=== PATIENT | male | born 1960 | race Caucasian/White ===

== ENCOUNTER 2017-10-08 10:09 | Inpatient (IN) ==
[2017-10-08 10:24] VITALS: RESP 18
[2017-10-08] MEDS ORDERED: Heparin 10,000 UNITS/10 ML Vial (for IV use) IV.PUSH STA (10:32)
--- NOTE | 2017-10-08 10:38 | ED ---
[facility] General Chief Complaint: STEMI Alert Stated Complaint: Chest pain Time Seen by Provider: 10/08/17 10:30 Source: patient Mode of arrival: ambulatory Limitations: no limitations History of Present Illness HPI narrative: Is a 56-year-old man with a history of hypertension diabetes hypothyroidism presents emerged department complaining of chest tightness, diaphoresis, sweating, also this morning when he woke up. He denies any explicit pain. Is unable to sinus problems over the past couple days but nothing more significant. No history of heart disease. Otherwise had been feeling generally well and healthy. Symptoms been mild to moderate, improving since onset. Patient denies explicit pain. Complete Quality Measures for STEMI Alert Patients Related Data Allergies Allergy/AdvReac Type Severity Reaction Status Date / Time No Known Allergies Allergy Unverified 10/08/17 10:17 Review of Systems ROS Unobtainable All other systems reviewed negative except as stated in HPI [facility] Medical History Medical History Diabetes (Acute) Hypertension (Acute) Hyperthyroidism (Acute) Social History Social History Substance History: No History of Abuse Smoking Status: Former smoker How Often Do You Have a Drink Containing Alcohol: 2 to 4 times a month Recent Travel in [facility] within the Last 8 Weeks: Yes Recent Out of Country Travel within the Last 8 Weeks: No Exam Narrative Exam Narrative: GENERAL: Obese 56-year-old man, no acute distress. SKIN: Focused skin assessment warm/dry. HEAD: Atraumatic. Normocephalic. EYES: Pupils equal and round. No scleral icterus. No injection or drainage. ENT: No nasal bleeding or discharge. Mucous membranes pink and moist. NECK: Trachea midline. No JVD. CARDIOVASCULAR: Regular rate and rhythm. No murmur appreciated. RESPIRATORY: No accessory muscle use. Clear to auscultation. Breath sounds equal bilaterally. GASTROINTESTINAL: Abdomen soft, non-tender, nondistended. Hepatic and splenic margins not palpable. MUSCULOSKELETAL: No obvious deformities. No clubbing. No cyanosis. No edema. NEUROLOGICAL: Awake and alert. No obvious cranial nerve deficits. Motor grossly within normal limits. Normal speech. PSYCHIATRIC: Appropriate mood and affect; insight and judgment normal. Course Initial Documented Vital Signs Temperature 97.6 F 10/08/17 10:19 Pulse Rate 98 H 07/19/18 10:19 Respiratory Rate 18 10/08/17 10:19 Blood Pressure 179/92 H 10/08/17 10:19 Pulse Oximetry 97 10/08/17 10:19 Last Documented Vital Signs Temperature 97.6 F 10/08/17 10:19 Pulse Rate 98 H 10/08/17 10:19 Respiratory Rate 18 10/08/17 10:19 Blood Pressure 179/92 H 10/08/17 10:19 Pulse Oximetry 97 10/08/17 10:19 Critical Care Time Critical Care Time: Yes Total Critical Care Time: 30 Attestation: Aggregate critical care time was 30 minutes. Time to perform other separately billable procedures was not included in the critical care time. My time did not include minutes spent treating any other patients simultaneously or on activities that did not directly contribute to the patient's treatment. The services I provided to this patient were to treat and/or prevent clinically significant deterioration that could result in: Unrecognized IA, worsening deterioration I provided critical care services requiring my management, as noted below: Chart data review, documentation time, medication orders and management, vital sign assessments/reviewing monitor data, ordering and reviewing lab tests, ordering and interpreting/reviewing x-rays and diagnostic studies, care of the patient and discussion of the patient with the admitting physicians. Quality Measure Queries AMI Clinical Trial Participant: No ECG initial impression date: 10/08/17 ECG initial impression time: 10:29 Medical Decision Making [facility] Narrative Medical decision making narrative: 56-year-old man presents emerged department chest tightness shortness of breath, history of diabetes, initial EKG very suggestive of acute anterior ST elevation IA. Patient's symptoms are not very prominent. Chest tightness, now resolving, no pain. Nonetheless, EKG very suggestive. Spoke with Dr. Mckay, will take for emergency heart cath. Other etiologies could include Brugada pattern, myocarditis, cardiomyopathy, a ventricular aneurysm. ECG Data EKG Prior to Arrival: No Attestation: I personally reviewed and interpreted this ECG as follows: Interpretation: Regular narrow complex rhythm, unclear rhythm, likely sinus, possibly flutter, anterior precordial Q waves with very prominent ST elevations anterior precordial leads, some ST elevations in the inferior leads as well, no definite reciprocal changes, Discharge Plan Physicians Team ED Provider: Eddie Elder Status ED Status: With Doctor
[2017-10-08] MEDS ORDERED: Heparin/NS PF Inj 1,500 ML ONE (10:39)
[2017-10-08] MEDS ORDERED: Nitroglycerin Drip Premix 50 MG/250 ML BOTTLE IV.CONT PRN (10:42)
[2017-10-08 11:02] LABS: Baso # (Auto) 0.2 th/mm3 (0.0-0.2); Baso % (Auto) 1.6 % (0.0-2.0); Eos # (Auto) 0.5 th/mm3 (0.0-0.4); Eos % (Auto) 4.7 % (0.0-4.0); Hematocrit 48.8 % (39.0-51.0); Hemoglobin 16.1 gm/dL (13.0-17.0); Lymph # (Auto) 2.8 th/mm3 (1.0-4.8); Lymph % (Auto) 26.8 % (9.0-44.0); Mean Corpuscular Hemoglobin 30.5 pg (27.0-34.0); Mean Corpuscular Volume 92.4 fL (80.0-100.0); Mean Platelet Volume 10.1 fL (7.0-11.0); Mono # (Auto) 0.8 th/mm3 (0.0-0.9); Mono % (Auto) 7.1 % (0.0-8.0); Neut # (Auto) 6.3 th/mm3 (1.8-7.7); Neut % (Auto) 59.8 % (16.0-70.0); Platelet Count 196 th/mm3 (150-450); Red Blood Count 5.28 mil/mm3 (4.50-5.90); Red Cell Distribution Width 12.1 % (11.6-17.2); White Blood Count 10.6 th/mm3 (4.0-11.0)
[2017-10-08 11:09] LABS: Calcium 8.8 mg/dL (8.5-10.1); Carbon Dioxide 26.9 meq/L (21.0-32.0); Troponin I 0.25 ng/mL (0.02-0.05)
--- NOTE | 2017-10-08 11:11 | XR ---
EXAM DATE: 10/08/2017 10:46 AM EDT AGE/SEX: 56 years / Male INDICATIONS: Chest pain; stemi alert. CLINICAL DATA: This is the patient's initial encounter. Patient reports that signs and symptoms have been present for 1 day and indicates a pain score of 3/10. MEDICAL/SURGICAL HISTORY: Hypertension. Diabetes mellitus type II. None. COMPARISON: No prior exams available for comparison. FINDINGS: A single AP view of the chest demonstrates the lungs to be symmetrically aerated without evidence of mass, infiltrate or effusion. The cardiomediastinal contours are unremarkable. Osseous structures a re intact. CONCLUSION: 1. No acute cardiopulmonary disease. Electronically signed by: Pedro Puga MD 10/08/2017 11:10 AM EDT
[2017-10-08 11:30] LABS: Activated Partial Thrombo Time 25.9 sec (24.3-30.1)
[2017-10-08] MEDS ORDERED: fentaNYL Citrate Inj 100 MCG/2 ML Ampul ONE (11:41)
[2017-10-08] MEDS ORDERED: Tirofiban Inj 12,500 MCG/250 ML PLAST..BAG ONE (11:56)
[2017-10-08] MEDS: Tirofiban Inj 12,500 MCG/250 ML PLAST..BAG IV.CONT SCH ×2 (12:17→20:32)
[2017-10-08] MEDS ORDERED: Misc Info for Pharmacy OTHER STA ×2 (12:22→16:26)
[2017-10-08] MEDS ORDERED: TIROFIBAN BOLUS IV.PUSH ONE (12:22)
--- NOTE | 2017-10-08 12:30 | CATHPROC ---
[facility] HIS Report Study Information Study Number Admission Scheduled Start Study Start [id number] Oct 08 2017 10:09AM 10/08/2017 Oct 08 2017 10:41AM [facility] Cardiac Catheterization Admit Source Facility Department Emergency department [facility] Youth Secretary Physician and Clinical Staff Initial Thom Biswas Commercial Litigation Associate Jasmin Appiah,RN Commercial Litigation Associate Kyree Herrera,RN Recorder Brian Romeo,RT(R) Recorder Key Ann BSN Scrub Ree FallRT(R) (BS) Procedures Performed Procedure Location (Site) Vessel Name Coronary Angiograms LCA Left Coronary Coronary Angiograms RCA Right Coronary L Heart Cath LV Gram-hand inj. LV LV Ventricle Stent LAD Prox Left Coronary Wire insertion Fem Art (right) Femoral Art Equipment Time Spout Positioner Description Size Mfg Part Number Used/Scraped [id number] 11:55 [employer] WIRE, ASAHI PROWATER 180CM 180CM Used *[id number] TRANSDUCER, TRUWAVE [id number] 10:43 LUU SCOTT * Used W/STOCKCOCK *[id number] [id number] *[id number] [id number] *[id number] *[id number] *[id number] 10:43 [employer] BLANKET,WARM AIR CCL * Used *[id number] 10:43 [employer] PACK, CCL CUSTOM * Used *[id number] 10:43 [employer] PACER PEN, SKIN DUAL W/ RULER * Used *[id number] 12:06 MED[employer]IC STENT, 3.0 12 INTEGRITY 3.0 12 Used *[id number] 12:03 MEDTRONIC STENT, 3.0 15 INTEGRITY 3.0 15 Used *[id number] 12:08 [employer] MEDICAL 30 JUDY INDEFLATOR Used *[id number] 11:53 [employer] MEDICAL SHEATH, FR6.5 PRELUDE 11CM FR 6.5 038ACT Used *[id number] 10:43 [employer] MEDICAL WIRE, 3MMJ .035 180CM 180CM Used *[id number] 10:43 NAMIC MANIFOLD, 4 PORT * Used *[id number] 10:43 [employer]COMED OMNIPAQUE, 350 MG, 150ML 150ML [id number] Used 12:02 [employer]COMED OMNIPAQUE, 350 MG, 150ML 150ML [id number] Used 12:02 NYCOMED OMNIPAQUE, 350 MG, 150ML 150ML [id number] Used [id number] 10:43 TERUM[employer] MEDICAL SHEATH, FR4 TERUMO (10CM) FR 4 Used *[id number] Equipment Model, Serial, Lot Number and Expiration Data Description Model Number Serial Number Lot Number Expiration Date STENT, 3.0 12 INTEGRITY [id number] 01-22-2019 History: Current Medications Medication Dosage/Unit Route Frequency Last Date/Time Taken Glyburide History: Allergies Allergy Reaction No Known Allergies History: Risk Factors Family History of Hypertension Dyslipidemia Previous NE Previous Heart Failure Premature CAD Yes No No No No Prior Valve Prior PCI Prior CABG Surgery No No No Cerebrovascular Peripheral Artery Chronic Lung On Dialysis Diabetes Diabetes Therapy Disease Disease Disease No No No No Yes Oral History: Symptoms/Diagnosis Selection Items Chest pain History: Stress Tests Stress or Imaging Studies Performed No History: Other Current Smoker No Labs Hgb (g/dl) Hct (%) RBC (MIL/MM3) WBC (l/cumm) Platelets (thousands) 11.60-17.00 35.00-51.00 4.00-5.90 4.00-11.00 150.00-450.00 16.1 48.8 5.2 10.6 196 Glucose (mg/dl) BUN (mg/dl) Creatinine (mg/dl) BUN:Creatinine (1:x) 74.00-106.00 7.00-18.00 0.50-1.30 10.00-20.00 318 19 1.0 19 Na (meq/l) K (meq/l) Cl (meq/l) CO2 (mmol/L) Ca (mg/dl) 136.00-145.00 3.50-5.10 98.00-107.00 21.00-32.00 8.50-10.10 137 4 101 26.9 8.8 PT (sec) PTT (sec) INR (PTT:PT) 9.80-11.60 24.30-30.10 0.90-1.10 10 25.9 1 Troponin I (ng/ml) CPK-MB (ng/ML) 0.02-0.05 0.50-3.60 0.25 Not Drawn Medication Medication Total Dose (Bolus/Oral) Medication Total Dosage/Unit 1% XYLOCAINE 20 mL AGGRASTAT BOLUS 66.5 mL EFFIENT 60 mg FENTANYL 25 mcg HEPARIN 6400 units VERSED 1 mg Medications (Bolus/Oral) Medication Time Given Dosage/Unit Administered By Reason VERSED 10/08/2017 11:43:10 AM 1 mg Jasmin Appiah 1 mg VERSED given in lab by Jasmin Appiah RN via Peripheral IV. Ordered by Thom Mckay. 1% XYLOCAINE 10/08/2017 11:43:40 AM 20 mL Thom Mckay 20 mL 1% XYLOCAINE given in lab by Thom Mckay in Right Groin via Subcutaneous. Ordered by Thom Crocker. FENTANYL 10/08/2017 11:44:17 AM 25 mcg Kyree Herrera 25 mcg FENTANYL given in lab by Kyree Herrera RN via Peripheral IV. Ordered by Thom Mckay. HEPARIN 10/08/2017 11:54:17 AM 6400 units Kyree Herrera 6400 units HEPARIN given in lab by Kyree Herrera RN via Peripheral IV. Ordered by Thom Mckay. AGGRASTAT BOLUS 10/08/2017 12:12:28 PM 66.5 mL Sharon, Kyree 66.5 mL AGGRASTAT BOLUS given in lab by Kyree Herrera RN via Peripheral IV. Ordered by German Mckay. EFFIENT 10/08/2017 12:17:36 PM 60 mg Kyree Herrera 60 mg EFFIENT given in lab by Kyree Herrera RN via Oral. Ordered by Thom Mckay. Medication (Drip) Medication Time Given Dosage/Unit Concentration/Unit Diluent (ml) Solution AGGRASTAT DRIP 10/08/2017 12:17:27 PM 0.155 mcg/kg/min 12.5 mg 250 NaCl .9 0.155 mcg/kg/min AGGRASTAT DRIP given in lab by Kyree Herrera RN via Peripheral IV. Pump/Drip Flow = 24 ml/hr using NaCl .9 with a concentration of 12.5 mg in 250 ml. Ordered by Thom Mckay. IV Solutions 10/08/2017 11:28:52 AM 0 mL (IV) 1000 NaCl .9 Patient arrived on IV Solutions in Left Antecubital via Peripheral IV. Pump/Drip Flow = 20 ml/hr usin g NaCl .9. NITROGLYCERIN DRIP 10/08/2017 11:28:21 AM 13.33 mcg/min 50 mg 250 D5W Patient arrived on 13.33 mcg/min NITROGLYCERIN DRIP in Left Antecubital via Peripheral IV. Pump/Drip Flow = 4 ml/hr using D5W with a concentration of 50 mg in 250 ml. Initial Case Assessment Cardiovascular HR NIBP Chest Pain 86 156/98 0 Edema Present Skin color Skin None Normal Warm Dry Neurological State Oriented to time-place- Alert Moves all extremities person Respiration - General Respiration Rate SpO2 (%) O2 (lpm) (B/min) 12 96 2 Chronological Log Time Study Chronological Log 10:54:46 Emergency Room notified that Community Youth Secretary is ready. Nia Hedrick. 11:25:03 Patient arrived via Bed. 11:25:04 Patient Name, D.O.B, / Armband Verified By R.N. 11:25:04 Consent signed by the physician and the patient and verified by the Community Youth Secretary staff. 11:25:05 Pre-op and post- op instructions given; patient acknowledges understanding of instructions. 11:25:06 Verbal Stimulation=2 Physical Stimulation=2 Airway=2 Respiration=2 TOTAL=8. (0=absent, 1=li mited, 2=present) 11:25:07 Presedation assessment performed by Community Youth Secretary RN. 11:25:10 Skin Breakdown- none per patient. 11:25:11 Patient Warmer Placed on the Table. 11:25:12 Disposable Defibrillator Pads Placed On Patient. 11:25:13 Yessi Prominences Protected 11:25:14 A # 20 IV was noted in the Antecubital (left). Grade = 0 Patient arrived on 13.33 mcg/min NITROGLYCERIN DRIP in Left Antecubital via Peripheral IV. Pump /Drip Flow = 4 11:28:21 ml/hr using D5W with a concentration of 50 mg in 250 ml. 11:28:52 Patient arrived on IV Solutions in Left Antecubital via Peripheral IV. Pump/Drip Flow = 20 ml/hr using NaCl .9. Vitals capture started with the following parameters, Patient=Adult, Interval=5 min, Initial Pr ncwuhj=985 mmHg, 11:29:02 Deflation Rate=5 mmHg, Cuff placed on Left Arm 11:29:35 History and physical on the chart or being dictated. 11:29:46 Patient has been NPO for More than 6Hrs. 11:30:04 A # 20 IV was noted in the Forearm (left). Grade = 0 11:30:15 QZ=108 bpm, VMJS=754/98 mmhg, SpO2=96.0 %, Resp=7 B/min, Pain=0, Huan=10, Astorga=2 Assessment: Initial Case, HR=86 BPM, PLFP=383/98 mmhg, Chest Pain=0, Edema=None, Color=Normal, Skin = Warm, Dry 11:30:31 Neurological: State=Alert, Ox3, TARIQ Respiration: Resp=12 B/min, SpO2=96 %, O2=2 lpm 11:34:43 ZX=010 bpm, DDGD=680/105 mmhg, SpO2=99.0 %, Resp=18 B/min, Pain=0, Huan=10, Astorga=2 11:35:30 Right groin prepped with 2% chlorhexidine, and draped after a 3 min. waiting time. 11:35:32 MD paged 11:35:44 MD responded 11:36:16 Pressure channel 1 zeroed. 11:36:22 MD arrived. Time Out. Correct patient, correct procedure, correct physician, labs, allergies, and equipment verified with labor crew supervisor 11:37:50 team present. Fire risk assesment completed (see hard stop sheet for coding). Time Out Conc urred by MD and individual staff in procedure. 11:39:06 Reference ECG taken 11:39:44 MH=587 bpm, HXDD=994/104 mmhg, SpO2=98.0 %, Resp=25 B/min, Pain=0, Huan=10, Astorga=2 11:42:23 Case Start 11:43:10 1 mg VERSED given in lab by Jasmin Appiah RN via Peripheral IV. Ordered by Tadeo Mckay. 20 mL 1% XYLOCAINE given in lab by Thom Mckay in Right Groin via Subcutaneous. Ordered by Woody 11:43:40 Thom. 11:44:17 25 mcg FENTANYL given in lab by Kyree Herrera RN via Peripheral IV. Ordered by Sam Mckay. 11:44:43 DI=053 bpm, INTZ=907/95 mmhg, SpO2=98.0 %, Resp=17 B/min, Pain=0, Huan=10, Astorga=2 11:45:05 Access site was Right Femoral Artery. 11:45:10 A SHEATH, FR4 TERUMO (10CM) FR 4 was advanced into the Fem Art (right) using the Percutaneo us technique. 11:45:43 Activated Clotting Time Drawn A JR 4.0 INFINITI CATHETER FR 4 was advanced over a wire. OMNIPAQUE, 350 MG, 150ML 150ML was us ed for 11:46:35 injections. Recorded Pressure: LV, YS=673, Condition=Condition 1 11:47:43 (Left Ventricle) LV 123/15/17 11:47:58 The LV was manually injected with 10 cc's and visualized. OMNIPAQUE, 350 MG, 150ML 150ML us ed. 11:48:28 The RCA was injected and visualized at various angles. OMNIPAQUE, 350 MG, 150ML 150ML used . Recorded Pressure: Ao, HR=96, Condition=Condition 1 11:48:36 (Aorta) Ao 122/81/100 After removing the current catheter a JL 4.0 INFINITI CATHETER FR 4 was advanced over a WIRE, 3 MMJ .035 180CM 11:49:06 180CM. 11:49:42 OO=389 bpm, VCUG=037/93 mmhg, SpO2=97.0 %, Resp=11 B/min 11:49:44 ACT (Normal Range 90-180) = 208 11:50:03 The LCA was injected and visualized at various angles. OMNIPAQUE, 350 MG, 150ML 150ML used . 11:52:51 Catheter was removed A SHEATH, FR6.5 PRELUDE 11CM FR 6.5 was exchanged in the Fem Art (right). This was necessary in order to 11:52:56 accomodate a larger catheter. 11:54:17 6400 units HEPARIN given in lab by Kyree Herrera RN via Peripheral IV. Ordered by Thom Mckay. A XB 4.0 GUIDE CATHETER FR 6 was advanced over a wire. OMNIPAQUE, 350 MG, 150ML 150ML was used for 11:54:31 injections. 11:54:43 HO=379 bpm, LZDN=256/98 mmhg, SpO2=97.0 %, Resp=25 B/min 11:56:32 A WIRE, ASAHI PROWATER 180CM 180CM was inserted via Fem Art (right). 11:58:11 Wire removed After removing the current catheter a XB 3.5 GUIDE CATHETER FR 6 was advanced over a WIRE, 3MMJ .035 180CM 11:58:19 180CM. 11:58:40 Activated Clotting Time Drawn 11:59:42 FJ=306 bpm, KJQA=395/98 mmhg, SpO2=97.0 %, Resp=21 B/min 12:00:55 A WIRE, ASAHI PROWATER 180CM 180CM was inserted via Fem Art (right). 12:03:13 Interventional wire has crossed the lesion 12:04:28 ACT (Normal Range 90-180) = 294 12:04:43 UI=517 bpm, OEAO=889/95 mmhg, SpO2=98.0 %, Resp=20 B/min An STENT, 3.0 15 INTEGRITY 3.0 15 Bare Metal Stent was inserted through a XB 3.5 GUIDE CATHETE R FR 6 over a 12:05:03 WIRE, ASAHI PROWATER 180CM 180CM. 12:05:33 Stent not deployed. Stent removed and intact. An STENT, 3.0 12 INTEGRITY 3.0 12 Bare Metal Stent was inserted through a XB 3.5 GUIDE CATHETE R FR 6 over a 12:06:39 WIRE, ASAHI PROWATER 180CM 180CM. A STENT, 3.0 12 INTEGRITY 3.0 12 was deployed using a 30 JUDY INDEFLATOR at 16 atmospheres for 15 seconds in 12:07:05 the LAD Prox. 12:09:32 Wire removed 12:09:40 Catheter was removed 12:09:42 HJ=462 bpm, CTCR=773/97 mmhg, SpO2=97.0 %, Resp=29 B/min 12:11:02 Case End (Physician broke scrub) 12:12:28 66.5 mL AGGRASTAT BOLUS given in lab by Kyree Herrera RN via Peripheral IV. Ordered by Thom Cool. 12:13:02 In the Fem Art (right) the SHEATH, FR6.5 PRELUDE 11CM FR 6.[address] by Thom Crocker. 12:13:12 Sterile dressing applied to site 12:13:13 No case complications noted. 12:13:15 Cine recording checked. 12:14:45 WT=644 bpm, GJPJ=158/102 mmhg, SpO2=97.0 %, Resp=26 B/min 12:15:17 Bedside Report will be given. 12:15:18 Implantable Device card placed in patient's chart. 12:15:25 A Left Heart Cath was performed. 0.155 mcg/kg/min AGGRASTAT DRIP given in lab by Kyree Herrera, RN via Peripheral IV. Pump/Drip Flow = 24 ml/hr 12:17:27 using NaCl .9 with a concentration of 12.5 mg in 250 ml. Ordered by Thom Mckay. 12:17:36 60 mg EFFIENT given in lab by Kyree Herrera RN via Oral. Ordered by Thom Mckay. 12:19:23 Vitals capture stopped. 12:24:01 Patient moved to [facility] End Study - Contrast Media Used In Study Contrast Total Opened (mL) Total Used (mL) Total Wasted (mL) Omnipaque 140 140 0 End Study - Maximum Contrast Load Max Contrast Load (mL) 645.5 End Study - Radiation Exposure Fluoro Time (minutes) 7.7 End Study - Patient Disposition Complications Transferred To Telemetry Bed
--- NOTE | 2017-10-08 12:49 | MB ---
cc: Thom Mckay MD DATE: 10/08/2017 HISTORY OF PRESENT ILLNESS: Mr. Liu is a very pleasant 56-year-old gentleman with a history of diabetes mellitus and hypertension, developed severe chest pain at 8:30 this morning. Prior to that, he was asymptomatic. He was found to have an anterior injury pattern on the EKG at [facility] attended by Dr. Haney who contacted me immediately and STEMI was enacted. The patient was given aspirin and heparin at [place]. Upon arrival to the chemical lab supervisor, he was pain-free. He otherwise denies any fever, chills, cough, GI or bleeding, pain, orthopnea, syncope or dizziness. PAST MEDICAL HISTORY: As per history of present illness. He has history of hyperthyroidism and hernia repair, as well. ALLERGIES: NONE. SOCIAL HISTORY: He is a former smoker, occasionally drinks alcohol. MEDICATIONS: Aspirin 243 mg given once in the ER, heparin drip started in the ER, IV nitro started in the ER. PHYSICAL EXAMINATION: VITAL SIGNS: Blood pressure 179/92, pulse 98, respiratory rate 18, temperature 97.6, sats 97% on room air. GENERAL: He is alert and oriented x 3 in no acute distress. NECK: Supple. No JVD. No bruit. CARDIOVASCULAR: S1, S2. No murmurs, rubs, or gallops. LUNGS: Clear to auscultation bilaterally. ABDOMEN: Soft, nontender, nondistended with positive bowel sounds. EXTREMITIES: No extremity edema. IMAGING STUDIES: Chest x-ray shows no acute cardiopulmonary disease. EKG: The EKG shows anteroseptal Q-waves with 5-[address] segmental elevation in leads V2, V3, V4, V5 with about [address] elevation in V6. LABORATORY DATA: White count 10.6, hemoglobin 16.1, hematocrit 48.8, platelet count 196. INR 1.0. Sodium 137, potassium 4.0, chloride 101, bicarbonate 26.9, BUN 19, creatinine 1.0, troponin 0.25, glucose 318. DIAGNOSES: 1. Non-ST elevation myocardial infarction. 2. Diabetes. 3. Hypertension. DISCUSSION: A STEMI has been called by Dr. Haney. The patient has been appropriately treated with aspirin, heparin bolus and IV nitro. PLAN: Emergent left heart catheterization and primary PCI. Thom Mckay MD AWC/DL , 12:31 PM , 12:47 PM
--- NOTE | 2017-10-08 12:49 | MA ---
cc: Thom Mckay MD DATE: 10/08/2017 PROCEDURE PERFORMED: Left heart catheterization, left ventriculography, coronary angiography, direct PCI with bare metal stent of the proximal LAD. INDICATIONS FOR PROCEDURE: STEMI, coronary artery disease, cardiomyopathy, diabetes. [place] [employer] Society class IV angina. Acute coronary syndrome. PROCEDURE: The patient was brought into the cardiac catheterization laboratory, prepped and draped in the usual sterile fashion. 10 mL of 1% lidocaine was used to locally anesthetize the right common femoral artery. A 4-Turkmen sheath was placed in the right common femoral artery, 4-Turkmen JR4 and JL4 catheters were used to perform left coronary angiography and left ventriculography. FINDINGS: The LV ejection fraction was 45%. Pressures not recorded. The anterior wall appears to be disproportionately hypokinetic, probably at least moderately hypokinetic. The right coronary artery is dominant, has probably moderate diffuse disease in the proximal mid-segment up to 40% angiographically. The right PDA has severe diffuse disease up to 75% proximal to this long lesion, reference vessel diameter is 2.5 mm. Beyond the lesion, the reference vessel diameter is about 2.25 mm. The right posterolateral artery is a 2 mm reference vessel diameter with no significant obstructive disease. Left main coronary artery has no significant disease angiographically. The left circumflex vessel has no significant disease angiographically. The first obtuse marginal vessel is a medium-size vessel, reference vessel diameter, 2.75 mm with a long proximal 70% stenosis, has about a 40-degree angulation off the AV groove left circumflex. There is a second obtuse marginal vessel that comes off the AV groove just after the first obtuse marginal vessel, which is a medium-sized vessel, reference vessel diameter 2.75 mm with no significant obstructive disease. The LAD is large and transapical, has a proximal 95% stenosis. Just beyond this stenosis, within about 12 mm, there is another 60-70% stenosis. The first diagonal artery is a medium sized vessel, probably at least 2.5 mm in diameter with a long ostial proximal 80% stenosis, has about a 35 degree angulation off the LAD. NOTE: The patient's initial ACT was 208. INTERVENTION: A 4-Turkmen sheath was exchanged for a 6-Turkmen sheath and an additional 50 units per kilo of heparin was given. Final ACT 294. A 6-Turkmen XB 3.5 guide, 0.014 [place] guidewire was placed into the distal LAD. Proximal LAD lesion was directly stented with a 3.0/12 Integrity stent with one inflation at 16 atmospheres for 20 seconds. Stenosis went from 95% to 0% with TAMARA 3 flow. NOTE: The patient had no chest pain with the stent balloon inflated. Also note that he was pain-free upon arrival to the [facility]. CONCLUSION: 1. ST elevation myocardial infarction, culprit 95% stenosis in the proximal left anterior descending. Note, the patient clearly had significant ST elevation of 4-5 mm in anterior leads with chest pain in the emergency room. His chest pain had resolved by the time he got aspirin, heparin and arrived in the [facility]. 2. Otherwise, severe 3-vessel coronary artery disease in a right dominant system. 3. Mildly decreased left ventricular systolic function with ejection fraction 45 percent, probably at least moderate hypokinesis of the anterior apical wall. 4. Successful direct percutaneous coronary intervention with bare metal stent of the proximal left anterior descending from 95 percent to 0 percent with TAMARA 3 flow. 5. Recommend Effient 60 mg by mouth load, then 10 mg daily for 12-15 months, aspirin 162 mg daily indefinitely, Aggrastat drip per protocol. Discontinue intravenous heparin. Continue intravenous nitroglycerin. We will check fasting lipids, CK and treat per NECP guidelines. MD IGNACIO Gaona/RAQUEL , 12:20 PM , 12:47 PM
[2017-10-08] MEDS ORDERED: Dextrose 50% in Water 50 ML Vial IV.PUSH PRN (13:51)
--- NOTE | 2017-10-08 13:55 | P.PNIM ---
Subjective Interval history: patient had cardiac cath earlier. now is pain free with no new complaints. Physical Exam Vital signs: Vital Signs 10/08/17 10:18 10/08/17 10:19 10/08/17 10:23 Temperature 97.6 F Pulse Rate 98 H 99 H Respiratory Rate 18 18 Blood Pressure 179/92 H 182/112 H Pulse Oximetry 98 97 99 Intake & Output 10/07/17 10/08/17 10/08/17 18:59 06:59 18:59 Weight 129 kg - Constitutional no acute distress - Routine Respiratory Exam Present: CTA bilaterally - Routine Cardiovascular Exam Present: RRR - Routine Abdominal Exam Present: soft - Routine Extremities Exam Comments: no pedal edema. - Routine Neurological Exam Present: alert, oriented X3 Results - Labs CBC & Chem 7: 10/08/17 10:28 10/08/17 10:28 Laboratory Results - last 24 hr 10/08/17 10/08/17 10/08/17 10:28 10:28 10:28 CBC w Diff Auto diff final WBC 10.6 RBC 5.28 Hgb 16.1 Hct 48.8 MCV 92.4 MCH 30.5 MCHC 33.0 RDW 12.1 Plt Count 196 MPV 10.1 Neut % (Auto) 59.8 Lymph % (Auto) 26.8 [place] % (Auto) 7.1 Eos % (Auto) 4.7 H Baso % (Auto) 1.6 Neut # (Auto) 6.3 Lymph # (Auto) 2.8 [place] # (Auto) 0.8 Eos # (Auto) 0.5 H Baso # (Auto) 0.2 WBC Differential . Differential Comment . PT 10.0 INR 1.0 APTT 25.9 Sodium 137 Potassium 4.0 Chloride 101 Carbon Dioxide 26.9 Anion Gap 9 BUN 19 H Creatinine 1.00 Estimated GFR 77 L Random Glucose 318 H Calcium 8.8 Total Creatine Kinase 90 Troponin I 0.25 H - Imaging Impressions Chest X-Ray 10/08/17 10:18 CONCLUSION: 1. No acute cardiopulmonary disease. Assessment and Plan - Plan A/P - STEMI s/p cardiac cath and stent placement- started on aspirin and effient- will start on statin when LFT's resulted- lipid panel pending. cardiology following. -diabetes mellitus; start on accu-check with SSI. -hypertension; will verify home meds and resume as appropriate. Discharge Planning: when cleared by cardiology. Progress Note: Quality - AMI Clinical Trial Participant: No
[2017-10-08 14:48] LABS: Albumin 3.4 g/dL (3.4-5.0)
[2017-10-08 14:53] LABS: Total Protein 7.8 g/dL (6.4-8.2)
[2017-10-08] MEDS ORDERED: Iohexol 350 MG/ML 100 ML Vial (for Cath Lab) IVCONTRAST ONE (17:27)
[2017-10-08] MEDS ORDERED: Iohexol 350 MG/ML 50 ML Vial (for Cath Lab) IVCONTRAST ONE (17:27)
[2017-10-08] MEDS: Insulin NovoLIN Regular Correctional Sugar Inj SQ SCH ×2 (18:22→21:58)
--- NOTE | 2017-10-08 19:42 | ECG ---
Date Performed: 10/08/2017 Time Performed: 10:22:40 PTAGE: 56 years EKG: CONTROLLED VENTRICULAR RATE LOW LIMB VOLTAGE ACUTE ANTERIOR ST SEGMENT ELEVATION MYOCARDIAL INFARCTION TYPE 1 BRUGADA PATTERN, EXCLUDE RECENT INFARCTION, CABG, MYOCARDITIS OR DRUG EFFECT AC MEGA OR NO PREVIOUS TRACING DOCTOR: Ernesto Davis Interpretating Date/Time 10/08/2017 20:37:21
[2017-10-08 22:48] VITALS: BP 139/62; TEMP 98
[2017-10-09 05:22] LABS: Baso # (Auto) 0.2 th/mm3 (0.0-0.2); Baso % (Auto) 1.2 % (0.0-2.0); Eos # (Auto) 0.4 th/mm3 (0.0-0.4); Eos % (Auto) 3.5 % (0.0-4.0); Hematocrit 45.9 % (39.0-51.0); Hemoglobin 15.3 gm/dL (13.0-17.0); Lymph # (Auto) 3.3 th/mm3 (1.0-4.8); Lymph % (Auto) 25.7 % (9.0-44.0); Mean Corpuscular HGB Conc 33.4 % (32.0-36.0); Mean Corpuscular Volume 89.8 fL (80.0-100.0); Mean Platelet Volume 10.1 fL (7.0-11.0); Mono # (Auto) 1.1 th/mm3 (0.0-0.9); Mono % (Auto) 8.7 % (0.0-8.0); Neut # (Auto) 7.7 th/mm3 (1.8-7.7); Neut % (Auto) 60.9 % (16.0-70.0); Platelet Count 213 th/mm3 (150-450); Red Blood Count 5.11 mil/mm3 (4.50-5.90); Red Cell Distribution Width 13.1 % (11.6-17.2); White Blood Count 12.7 th/mm3 (4.0-11.0)
[2017-10-09 05:42] LABS: Calcium 9.1 mg/dL (8.5-10.1); Carbon Dioxide 28.4 meq/L (21.0-32.0); Potassium 4.3 meq/L (3.5-5.1)
[2017-10-09 05:45] LABS: Chol/HDL Ratio 5.16 Ratio; HDL Cholesterol 39.9 mg/dL (40.0-60.0)
[2017-10-09 06:08] LABS: Creatine Kinase MB 39.6 ng/mL (0.5-3.6)
[2017-10-09 06:22] LABS: CKMB Percent 4.5 % (0.0-4.0)
--- NOTE | 2017-10-09 07:45 | P.PNIM ---
Subjective Interval history: f/u; STEMI in no acute distress. denies chest pain, sob. no new complaints. Physical Exam Vital signs: Vital Signs 10/08/17 10:18 10/08/17 10:19 10/08/17 10:23 Temperature 97.6 F Pulse Rate 98 H 99 H Respiratory Rate 18 18 Blood Pressure 179/92 H 182/112 H Pulse Oximetry 98 97 99 10/08/17 13:08 10/08/17 15:47 10/08/17 16:08 Temperature 98.2 F 98.5 F Pulse Rate Respiratory Rate 18 18 Blood Pressure 122/69 128/76 128/81 Pulse Oximetry 98 97 10/08/17 17:08 10/08/17 18:08 10/08/17 19:00 Temperature Pulse Rate 106 H Respiratory Rate Blood Pressure 130/78 128/81 Pulse Oximetry 97 10/08/17 19:08 10/08/17 20:00 10/08/17 20:13 Temperature 98 F Pulse Rate 110 H 103 H Respiratory Rate Blood Pressure 139/62 Pulse Oximetry 97 97 97 10/08/17 21:00 10/08/17 22:00 10/08/17 23:00 Temperature Pulse Rate 109 H 102 H 108 H Respiratory Rate Blood Pressure Pulse Oximetry 97 10/09/17 00:00 10/09/17 01:00 10/09/17 02:00 Temperature Pulse Rate 116 H 106 H 102 H Respiratory Rate Blood Pressure Pulse Oximetry 10/09/17 03:00 10/09/17 04:00 10/09/17 05:00 Temperature Pulse Rate 108 H 106 H 105 H Respiratory Rate Blood Pressure Pulse Oximetry 96 10/09/17 06:00 Temperature Pulse Rate 111 H Respiratory Rate Blood Pressure Pulse Oximetry Intake & Output 10/08/17 10/09/17 10/09/17 18:59 06:59 18:59 Intake Total 1700 / 1700 1244 / 1244 Output Total 400 / 400 750 / 750 Balance 1300 / 1300 494 / 494 Weight 129 kg 127.5 kg Intake: IV 1000 / 1000 524 / 524 Heparin/NS PF Inj 1,500 ML @ 0 1000 / 1000 mls/hr .ROUTE .STK-MED ONE Rx#: [id number] Nitroglycerin Drip Premix 50 mg 3 / 3 In 250 ml @ Per Protocol IV. CONT TITRATE PRN Rx#:[id number] Aggrastat Inj 12,500 mcg In 250 521 / 521 ml @ Per Protocol IV.CONT .Q0M [facility] Rx#:[id number] Oral 700 / 700 720 / 720 Output: Urine 400 / 400 750 / 750 Other: # Bowel Movements 0 - Constitutional no acute distress - Routine Respiratory Exam Present: CTA bilaterally - Routine Cardiovascular Exam Present: RRR - Routine Abdominal Exam Present: soft - Routine Extremities Exam Comments: no pedal edema. - Routine Neurological Exam Present: alert, oriented X3 Results - Labs CBC & Chem 7: 10/09/17 04:38 10/09/17 04:38 Laboratory Results - last 24 hr 10/08/17 10/08/17 10/08/17 10:28 10:28 10:28 CBC w Diff Auto diff final WBC 10.6 RBC 5.28 Hgb 16.1 Hct 48.8 MCV 92.4 MCH 30.5 MCHC 33.0 RDW 12.1 Plt Count 196 MPV 10.1 Neut % (Auto) 59.8 Lymph % (Auto) 26.8 [place] % (Auto) 7.1 Eos % (Auto) 4.7 H Baso % (Auto) 1.6 Neut # (Auto) 6.3 Lymph # (Auto) 2.8 [place] # (Auto) 0.8 Eos # (Auto) 0.5 H Baso # (Auto) 0.2 WBC Differential . Differential Comment . PT 10.0 INR 1.0 APTT 25.9 Sodium 137 Potassium 4.0 Chloride 101 Carbon Dioxide 26.9 Anion Gap 9 BUN 19 H Creatinine 1.00 Estimated GFR 77 L POC Glucose Random Glucose 318 H Calcium 8.8 Total Bilirubin 0.8 Direct Bilirubin 0.2 Indirect Bilirubin 0.6 AST 30 ALT 33 Alkaline Phosphatase 100 Total Creatine Kinase 90 CK-MB (CK-2) CK-MB (CK-2) % Troponin I 0.25 H Total Protein 7.8 Albumin 3.4 Triglycerides Cholesterol LDL Cholesterol, Calc HDL Cholesterol Cholesterol/HDL Ratio 10/08/17 10/08/17 10/09/17 17:51 20:37 04:38 CBC w Diff WBC 12.7 H RBC 5.11 Hgb 15.3 Hct 45.9 MCV 89.8 MCH 30.0 MCHC 33.4 RDW 13.1 Plt Count 213 MPV 10.1 Neut % (Auto) 60.9 Lymph % (Auto) 25.7 [place] % (Auto) 8.7 H Eos % (Auto) 3.5 Baso % (Auto) 1.2 Neut # (Auto) 7.7 Lymph # (Auto) 3.3 [place] # (Auto) 1.1 H Eos # (Auto) 0.4 Baso # (Auto) 0.2 WBC Differential . Differential Comment Auto diff final PT INR APTT Sodium Potassium Chloride Carbon Dioxide Anion Gap BUN Creatinine Estimated GFR POC Glucose 170 H 214 H Random Glucose Calcium Total Bilirubin Direct Bilirubin Indirect Bilirubin AST ALT Alkaline Phosphatase Total Creatine Kinase CK-MB (CK-2) CK-MB (CK-2) % Troponin I Total Protein Albumin Triglycerides Cholesterol LDL Cholesterol, Calc HDL Cholesterol Cholesterol/HDL Ratio 10/09/17 04:38 CBC w Diff WBC RBC Hgb Hct MCV MCH MCHC RDW Plt Count MPV Neut % (Auto) Lymph % (Auto) [place] % (Auto) Eos % (Auto) Baso % (Auto) Neut # (Auto) Lymph # (Auto) [place] # (Auto) Eos # (Auto) Baso # (Auto) WBC Differential Differential Comment PT INR APTT Sodium 139 Potassium 4.3 Chloride 101 Carbon Dioxide 28.4 Anion Gap 10 BUN 19 H Creatinine 1.06 Estimated GFR 72 L POC Glucose Random Glucose 251 H Calcium 9.1 Total Bilirubin Direct Bilirubin Indirect Bilirubin AST ALT Alkaline Phosphatase Total Creatine Kinase 877 H CK-MB (CK-2) 39.6 H CK-MB (CK-2) % 4.5 H* Troponin I Total Protein Albumin Triglycerides 332 H Cholesterol 206 H LDL Cholesterol, Calc 100 H HDL Cholesterol 39.9 L Cholesterol/HDL Ratio 5.16 - Imaging Impressions Chest X-Ray 10/08/17 10:18 CONCLUSION: 1. No acute cardiopulmonary disease. Assessment and Plan - Plan A/P - STEMI s/p cardiac cath with severe three vessel disease and stent placement in LAD started on aspirin and effient- d/w the patient regarding statins but he says that he had ' kidney stone' while he was on statin two years ago and he doesn't want to be started back on it at this time. cardiology following. -diabetes mellitus; started on accu-check with SSI. -hypertension; will verify home meds and resume as appropriate. Discharge Planning: when cleared by cardiology. Progress Note: Quality - AMI Clinical Trial Participant: No
[2017-10-09] MEDS: Insulin NovoLIN Regular Correctional Sugar Inj SQ SCH ×3 (11:28→20:24)
--- NOTE | 2017-10-09 12:20 | P.PNCA ---
Subjective Interval history: assymptomatic Physical Exam Vital signs: Vital Signs 10/08/17 13:08 10/08/17 15:47 10/08/17 16:08 Temperature 98.2 F 98.5 F Pulse Rate Respiratory Rate 18 18 Blood Pressure 122/69 128/76 128/81 Pulse Oximetry 98 97 10/08/17 17:08 10/08/17 18:08 10/08/17 19:00 Temperature Pulse Rate 106 H Respiratory Rate Blood Pressure 130/78 128/81 Pulse Oximetry 97 10/08/17 19:08 10/08/17 20:00 10/08/17 20:13 Temperature 98 F Pulse Rate 110 H 103 H Respiratory Rate Blood Pressure 139/62 Pulse Oximetry 97 97 97 10/08/17 21:00 10/08/17 22:00 10/08/17 23:00 Temperature Pulse Rate 109 H 102 H 108 H Respiratory Rate Blood Pressure Pulse Oximetry 97 10/09/17 00:00 10/09/17 01:00 10/09/17 02:00 Temperature Pulse Rate 116 H 106 H 102 H Respiratory Rate Blood Pressure Pulse Oximetry 10/09/17 03:00 10/09/17 04:00 10/09/17 05:00 Temperature Pulse Rate 108 H 106 H 105 H Respiratory Rate Blood Pressure Pulse Oximetry 96 10/09/17 06:00 10/09/17 07:00 10/09/17 08:00 Temperature Pulse Rate 111 H 113 H 112 H Respiratory Rate Blood Pressure Pulse Oximetry 96 96 10/09/17 09:25 Temperature Pulse Rate Respiratory Rate Blood Pressure Pulse Oximetry 97 Intake & Output 10/08/17 10/09/17 10/09/17 18:59 06:59 18:59 Intake Total 1700 / 1700 1244 / 1244 Output Total 400 / 400 750 / 750 Balance 1300 / 1300 494 / 494 Weight 129 kg 127.5 kg Intake: IV 1000 / 1000 524 / 524 Heparin/NS PF Inj 1,500 ML @ 0 1000 / 1000 mls/hr .ROUTE .STK-MED ONE Rx#: [id number] Nitroglycerin Drip Premix 50 mg 3 / 3 In 250 ml @ Per Protocol IV. CONT TITRATE PRN Rx#:[id number] Aggrastat Inj 12,500 mcg In 250 521 / 521 ml @ Per Protocol IV.CONT .Q0M [facility] Rx#:[id number] Oral 700 / 700 720 / 720 Output: Urine 400 / 400 750 / 750 Other: # Bowel Movements 0 Assessment and Plan - Assessment (1) CAD (coronary artery disease) Code(s): I25.10 - Atherosclerotic heart disease of [place] coronary artery without angina pectoris Status: Acute (2) STEMI (ST elevation myocardial infarction) Code(s): I21.3 - ST elevation (STEMI) myocardial infarction of unspecified site Status: Acute (3) CHF (congestive heart failure) Code(s): I50.9 - Heart failure, unspecified Status: Acute (4) Diabetes Code(s): E11.9 - Type 2 diabetes mellitus without complications Status: Acute (5) HTN (hypertension) Code(s): I10 - Essential (primary) hypertension Status: Acute - Plan 1.) CAD - pod #1 primary pci proximal lad, assymptomatic, continue aspirin, effient, start lipitor 40 mg hs Progress Note: Quality - AMI Clinical Trial Participant: No
[2017-10-09] MEDS: Metoprolol Tartrate 25 MG Tablet PO SCH (20:23)
[2017-10-09] MEDS ORDERED: Insulin Detemir Inj 1,000 UNIT/10 ML Vial SQ SCH (21:00)
[2017-10-10] MEDS ORDERED: Levothyroxine 150 MCG Tablet PO SCH (06:00)
--- NOTE | 2017-10-10 07:53 | P.PNIM ---
Subjective Interval history: f/u; MT resting comfortably with no distress. no chest pain or sob. d/w the RN. Physical Exam Vital signs: Vital Signs 10/09/17 08:00 10/09/17 09:00 10/09/17 09:25 Pulse Rate 112 H 108 H Pulse Oximetry 96 97 10/09/17 10:00 10/09/17 11:00 10/09/17 12:00 Pulse Rate 123 H 108 H 101 H Pulse Oximetry 10/09/17 13:00 10/09/17 14:00 10/09/17 15:00 Pulse Rate 117 H 108 H 112 H Pulse Oximetry 10/09/17 16:00 10/09/17 17:00 10/09/17 17:27 Pulse Rate 118 H 124 H Pulse Oximetry 97 10/09/17 18:00 10/09/17 19:00 10/09/17 20:00 Pulse Rate 118 H 120 H 125 H Pulse Oximetry 98 10/09/17 21:00 10/09/17 22:00 10/09/17 23:00 Pulse Rate 117 H 111 H 108 H Pulse Oximetry 98 10/10/17 00:00 10/10/17 01:00 10/10/17 02:00 Pulse Rate 105 H 106 H 89 Pulse Oximetry 10/10/17 03:00 10/10/17 04:00 10/10/17 05:00 Pulse Rate 98 H 96 H 96 H Pulse Oximetry 98 10/10/17 06:00 Pulse Rate 107 H Pulse Oximetry Intake & Output 10/09/17 10/10/17 10/10/17 18:59 06:59 18:59 Intake Total 720 / 720 420 / 420 Balance 720 / 720 420 / 420 Weight 128.6 kg Intake: Oral 720 / 720 420 / 420 Other: # Voids 4 2 - Constitutional no acute distress - Routine Respiratory Exam Present: CTA bilaterally - Routine Cardiovascular Exam Present: RRR - Routine Abdominal Exam Present: soft - Routine Extremities Exam Comments: no pedal edema. - Routine Neurological Exam Present: alert, oriented X3 Results - Labs CBC & Chem 7: 10/09/17 04:38 10/09/17 04:38 Laboratory Results - last 24 hr 10/09/17 10/09/17 10/09/17 07:55 11:22 16:33 POC Glucose 264 H 262 H 265 H 10/09/17 20:01 POC Glucose 288 H Assessment and Plan - Plan A/P - STEMI s/p cardiac cath with severe three vessel disease and stent placement in LAD started on aspirin and effient- added metoprolol,lisinopril and statin. cardiology following. -diabetes mellitus; started on accu-check with SSI. -hypertension; continue metoprolol and lisinopril Discharge Planning: possibly today when cleared by cardiology. see med list. f/u; pcp and cardiology. d/w the patient and RN. Progress Note: Quality - AMI Clinical Trial Participant: No
--- NOTE | 2017-10-10 07:59 | P.DS ---
Date of admission: 10/08/17 10:39 Primary care physician: Loida Márquez Brief History from admission: 56-year-old man with a history of hypertension diabetes hypothyroidism presents to emergency department complaining of chest tightness, diaphoresis, sweating, also this morning when he woke up. DS: Medications - Discharge Medications Prescriptions: aspirin 162 mg PO DAILY 30 Days #60 tab atorvastatin 40 mg PO HS 30 Days #30 tab lisinopril 5 mg PO DAILY 30 Days #30 tab metoprolol tartrate 25 mg PO BID 30 Days #60 tab prasugrel [Effient] 10 mg PO DAILY 30 Days #30 tab DS: Summary Hospital Course: patient was admitted with STEMI. he had cardiac cath which showed three vessel disease- stent was placed in LAD. he was started on aspirin, effient, metoprolol and statin. his lisinopril was resumed. otherwise the course in the hospital was uneventful. - Time Spent with Patient Total time spent providing and/or coordinating discharge services: - Quality: AMI Clinical Trial Participant: No - Quality: VTE Deep Vein Thrombosis/Pulmonary Embolism Present on Admission: No Exam Vital signs: Vital Signs 10/09/17 08:00 10/09/17 09:00 10/09/17 09:25 Pulse Rate 112 H 108 H Pulse Oximetry 96 97 10/09/17 10:00 10/09/17 11:00 10/09/17 12:00 Pulse Rate 123 H 108 H 101 H Pulse Oximetry 10/09/17 13:00 10/09/17 14:00 10/09/17 15:00 Pulse Rate 117 H 108 H 112 H Pulse Oximetry 10/09/17 16:00 10/09/17 17:00 10/09/17 17:27 Pulse Rate 118 H 124 H Pulse Oximetry 97 10/09/17 18:00 10/09/17 19:00 10/09/17 20:00 Pulse Rate 118 H 120 H 125 H Pulse Oximetry 98 10/09/17 21:00 10/09/17 22:00 10/09/17 23:00 Pulse Rate 117 H 111 H 108 H Pulse Oximetry 98 10/10/17 00:00 10/10/17 01:00 10/10/17 02:00 Pulse Rate 105 H 106 H 89 Pulse Oximetry 10/10/17 03:00 10/10/17 04:00 10/10/17 05:00 Pulse Rate 98 H 96 H 96 H Pulse Oximetry 98 10/10/17 06:00 Pulse Rate 107 H Pulse Oximetry Intake & Output 10/09/17 10/10/17 10/10/17 18:59 06:59 18:59 Intake Total 720 / 720 420 / 420 Balance 720 / 720 420 / 420 Weight 128.6 kg Intake: Oral 720 / 720 420 / 420 Other: # Voids 4 2 Results Procedures completed during hospitalization: cardiac cath. Labs on day of discharge: Labs from last 24 hours 10/09/17 10/09/17 10/09/17 20:01 16:33 11:22 POC Glucose 288 H 265 H 262 H 10/09/17 07:55 POC Glucose 264 H - Impressions ITS Impressions Chest X-Ray 10/08/17 10:18 CONCLUSION: 1. No acute cardiopulmonary disease. Discharge Plan - Discharge Disposition Patient Disposition: 01 Discharge Home - Discharge Condition Condition: Good - Physicians Team Attending Provider: Aida Robles Other Providers: Thom Mckay MD - Rxs /Orders / Referrals /Forms Prescriptions: New aspirin 81 mg Tablet,Chewable 162 mg PO DAILY 30 Days Qty: 60 RF: 0 atorvastatin 40 mg Tablet 40 mg PO HS 30 Days Qty: 30 RF: 0 lisinopril 5 mg Tablet 5 mg PO DAILY 30 Days Qty: 30 RF: 0 metoprolol tartrate 25 mg Tablet 25 mg PO BID 30 Days Qty: 60 RF: 0 prasugrel [Effient] 10 mg Tablet 10 mg PO DAILY 30 Days Qty: 30 RF: 0 Continue Amaryl 4 mg tablet See Label Instructions .ROUTE .COMPLEX amlodipine 5 mg Tablet 5 mg PO DAILY levothyroxine 300 mcg Tablet 300 mcg PO DAILY metformin 1,000 mg Tablet 1,000 mg PO BID Discontinued atenolol 100 mg Tablet 100 mg PO DAILY lisinopril-hydrochlorothiazide tablet DAILY Referrals: Loida Ojeda DO [Other] - See Instructions
[2017-10-10] MEDS: Insulin NovoLIN Regular Correctional Sugar Inj SQ SCH ×3 (08:41→12:12)
[2017-10-10] MEDS: Metoprolol Tartrate 25 MG Tablet PO SCH (08:41)
[2017-10-10] MEDS ORDERED: Lisinopril 5 MG Tablet PO SCH (09:00)
[2017-10-10 12:00] VITALS: O2SAT 99
[2017-10-10 12:01] VITALS: PULSE 101
--- NOTE | 2017-10-10 12:58 | P.PNCA ---
Subjective Interval history: assymptomatic in nad Physical Exam Vital signs: Vital Signs 10/09/17 13:00 10/09/17 14:00 10/09/17 15:00 Pulse Rate 117 H 108 H 112 H Pulse Oximetry 10/09/17 16:00 10/09/17 17:00 10/09/17 17:27 Pulse Rate 118 H 124 H Pulse Oximetry 97 10/09/17 18:00 10/09/17 19:00 10/09/17 20:00 Pulse Rate 118 H 120 H 125 H Pulse Oximetry 98 10/09/17 21:00 10/09/17 22:00 10/09/17 23:00 Pulse Rate 117 H 111 H 108 H Pulse Oximetry 98 10/10/17 00:00 10/10/17 01:00 10/10/17 02:00 Pulse Rate 105 H 106 H 89 Pulse Oximetry 10/10/17 03:00 10/10/17 04:00 10/10/17 05:00 Pulse Rate 98 H 96 H 96 H Pulse Oximetry 98 10/10/17 06:00 10/10/17 07:00 10/10/17 08:00 Pulse Rate 107 H 101 H 96 H Pulse Oximetry 97 10/10/17 09:00 10/10/17 10:00 10/10/17 11:00 Pulse Rate 98 H 96 H 106 H Pulse Oximetry 99 10/10/17 12:00 Pulse Rate 101 H Pulse Oximetry Intake & Output 10/09/17 10/10/17 10/10/17 18:59 06:59 18:59 Intake Total 720 / 720 420 / 420 900 / 900 Output Total 650 / 650 Balance 720 / 720 420 / 420 250 / 250 Weight 128.6 kg Intake: Oral 720 / 720 420 / 420 900 / 900 Output: Urine 650 / 650 Other: # Voids 4 2 Assessment and Plan - Assessment (1) CAD (coronary artery disease) Code(s): I25.10 - Atherosclerotic heart disease of [place] coronary artery without angina pectoris Status: Acute (2) STEMI (ST elevation myocardial infarction) Code(s): I21.3 - ST elevation (STEMI) myocardial infarction of unspecified site Status: Acute (3) CHF (congestive heart failure) Code(s): I50.9 - Heart failure, unspecified Status: Acute (4) Diabetes Code(s): E11.9 - Type 2 diabetes mellitus without complications Status: Acute (5) HTN (hypertension) Code(s): I10 - Essential (primary) hypertension Status: Acute - Plan 1.) CAD - pod #2 primary pci proximal lad, assymptomatic, continue aspirin, effient, start lipitor 40 mg hs, continue lopressor, lisinopril, f/u manager human resources in [place] rachel Progress Note: Quality - AMI Clinical Trial Participant: No
== END 2017-10-10 13:10 | disposition home or self-care (01) ==
LOC: PHED 10:09 → PHEDA 10:39 → HCPC 12:55
PROVIDERS: ADMIT Internal Medicine; ATTEND Internal Medicine
DX: I11.0 Hypertensive heart disease with heart failure; Z68.41 Body mass index [BMI] 40.0-44.9, adult; Z87.891 Personal history of nicotine dependence; E11.9 Type 2 diabetes mellitus without complications; I50.9 Heart failure, unspecified; I21.02 ST elevation (STEMI) myocardial infarction involving left anterior descending coronary artery; E03.9 Hypothyroidism, unspecified; I25.119 Atherosclerotic heart disease of native coronary artery with unspecified angina pectoris; E66.9 Obesity, unspecified